=== PATIENT | female | born 1975 | race Caucasian/White ===

== ENCOUNTER 2017-07-12 17:17 | Emergency (ER) | payer OTHER ==
[~2017-07-12] VITALS: Ht 162.6 cm; Wt 50.0 kg
[~2017-07-12 17:17] MED LIST: CYMB30CA PO; LABE100 PO; LORA-475 PO; PROT40TA PO
[2017-07-12 17:22] VITALS: BP 128/82; PULSE 82; RESP 14; TEMP 98.8; O2SAT 97
[2017-07-12] MEDS ORDERED: CODEINE (17:41)
[2017-07-12] MEDS ORDERED: LORA1TAB12 PO (17:41)
[2017-07-12] MEDS ORDERED: TRAM50TA PO (17:41)
[2017-07-12] MEDS ORDERED: ZOLP10TA3 PO (17:41)
[2017-07-12] MEDS ORDERED: BUTA1CAP PO (17:41)
[2017-07-12] MEDS ORDERED: LABE100T2 PO (17:41)
[2017-07-12] MEDS ORDERED: DICL1CAP3 PO (17:41)
[2017-07-12] MEDS ORDERED: ACETAMINOPHEN (17:41)
[2017-07-12] MEDS ORDERED: DULO1CAP2 PO (17:41)
[2017-07-12] MEDS ORDERED: SODIUM CHLOR 0.9% 1000 ML INJ 1,000 ML IV SCH (18:12)
[2017-07-12] MEDS ORDERED: SODIUM CHLORIDE 0.9% FLUSH 10 ML FLUSH IV FLUSH PRN (18:15)
[2017-07-12] MEDS ORDERED: ONDANSETRON HCL 4 MG/2 ML VIAL IV PUSH ONE (18:15)
[2017-07-12 18:35] LABS: AUTOMATED NEUTROPHIL # 2.8 TH/MM3 (1.8-7.7); BASOPHIL % 0.5 % (0.0-2.0); EOSINOPHIL # 0.1 TH/MM3 (0-0.4); EOSINOPHIL % 1.1 % (0.0-4.0); HEMATOCRIT 34.9 % (35.0-46.0); HEMOGLOBIN 11.7 GM/DL (11.6-15.3); LYMPH % 34.7 % (9.0-44.0); LYMPHOCYTE # 1.7 TH/MM3 (1.0-4.8); MEAN CELL VOLUME 88.3 FL (80.0-100.0); MEAN CORPUSCULAR HEMOGLOBIN 29.5 PG (27.0-34.0); MEAN CORPUSCULAR HGB CONC 33.4 % (32.0-36.0); MEAN PLATELET VOLUME 8.5 FL (7.0-11.0); MONO % 6.1 % (0.0-8.0); MONOCYTE # 0.3 TH/MM3 (0-0.9); NEUT % 57.6 % (16.0-70.0); PLATELET COUNT 285 TH/MM3 (150-450); RED BLOOD COUNT 3.95 MIL/MM3 (4.00-5.30); RED CELL DISTRIBUTION WIDTH 13.4 % (11.6-17.2); WHITE BLOOD COUNT 4.9 TH/MM3 (4.0-11.0)
[2017-07-12 18:43] LABS: INTERNATIONAL NORMALIZED RATIO 1.1 RATIO; PROTHROMBIN TIME - PATIENT 10.7 SEC (9.8-11.6)
[2017-07-12 18:53] LABS: ALBUMIN 4.1 GM/DL (3.4-5.0); ALT (GPT) 15 U/L (10-53); AST (GOT) 18 U/L (15-37); BICARBONATE 28.5 MEQ/L (21.0-32.0); BLOOD UREA NITROGEN 6 MG/DL (7-18); CALCIUM 8.7 MG/DL (8.5-10.1); CREATININE 0.81 MG/DL (0.50-1.00); GLOMERULAR FILTRATION RATE 77 ML/MIN (>89); GLUCOSE,RANDOM 91 MG/DL (74-106)
--- NOTE | 2017-07-12 18:54 | RADRPT ---
EXAM DATE/TIME: 07/12/2017 18:27 [facility] COMPARISON: CT BRAIN W/O CONTRAST, April 26, 2015, 0:30. INDICATIONS : Altered mental status. RADIATION DOSE: 56.35 CTDIvol (mGy) MEDICAL HISTORY : Hypertension. SURGICAL HISTORY : Hysterectomy. ENCOUNTER: Initial ACUITY: 1 day PAIN SCALE: 5/10 LOCATION: cranial TECHNIQUE: Multiple contiguous axial images were obtained of the head. Using automated exposure control and adj ustment of the mA and/or kV according to patient size, radiation dose was kept as low as reasonably a chievable to obtain optimal diagnostic quality images. DICOM format image data is available electro nically for review and comparison. FINDINGS: CEREBRUM: The ventricles are normal for age. No evidence of midline shift, mass lesion, hemorrhage or acute in farction. No extra-axial fluid collections are seen. POSTERIOR FOSSA: The cerebellum and brainstem are intact. The 4th ventricle is midline. The cerebellopontine angle i s unremarkable. EXTRACRANIAL: The visualized portion of the orbits is intact. SKULL: The calvaria is intact. No evidence of skull fracture. CONCLUSION: Negative noncontrast head CT. Ruben Allan MD on July 12, 2017 at 18:52 Board Certified Radiologist. This report was verified electronically.
[2017-07-12 18:55] LABS: ALKALINE PHOSPHATASE 76 U/L (45-117); TOTAL BILIRUBIN ADULT 0.7 MG/DL (0.2-1.0); TOTAL PROTEIN 7.1 GM/DL (6.4-8.2)
--- NOTE | 2017-07-12 19:15 | RADRPT ---
EXAM DATE/TIME: 07/12/2017 18:50 [facility] COMPARISON: No previous studies available for comparison. INDICATIONS : Short of breath and chest pain. MEDICAL HISTORY : Hypertension. Gastroesophageal reflux disease. SURGICAL HISTORY : Hysterectomy. ENCOUNTER: Initial ACUITY: 1 day PAIN SCORE: 2/10 LOCATION: Bilateral chest FINDINGS: A single view of the chest demonstrates the lungs to be symmetrically aerated without evidence of mas s, infiltrate or effusion. The cardiomediastinal contours are unremarkable. Osseous structures are intact. CONCLUSION: No evidence of acute cardiopulmonary disease. Ruben Allan MD on July 12, 2017 at 19:13 Board Certified Radiologist. This report was verified electronically.
[2017-07-12 19:28] LABS: CHLORIDE 106 MEQ/L (98-107); SODIUM (NA) 141 MEQ/L (136-145)
[2017-07-12 19:44] LABS: ACETAMINOPHEN LESS THAN 2.0 MCG/ML (10.0-30.0)
--- NOTE | 2017-07-12 19:49 | PD ---
HPI Chief Complaint: Altered Mental Status Time Seen by Provider: 17:29 Travel History International Travel<30 days: No Contact w/Intl Traveler<30days: No Traveled to known affect area: No History of Present Illness HPI Patient is a 41-year-old female brought in by EMS due to altered mental status. Patient does not remember what happened this afternoon, she is is complaining of a left-sided headache. Per daughter, patient was speaking to her when she suddenly started shaking and became unresponsive. She has been confused then. She has never had a seizure before. She takes Ativan as well as Ambien and has several empty bottles with her. Patient is still confused on interview. PFSH Past Medical History Hx Anticoagulant Therapy: No Anxiety: Yes (PANIC DISORDER) Depression: Yes Cardiovascular Problems: Yes (HTN) High Cholesterol: No Chemotherapy: No Congestive Heart Failure: No Cerebrovascular Accident: No Diabetes: No Diminished Hearing: No Gastrointestinal Disorders: Yes GERD: Yes Genitourinary: Yes Headaches: Yes Hypertension: Yes Implanted Vascular Access Dvce: Yes Kidney Stones: Yes Musculoskeletal: No Neurologic: Yes Psychiatric: Yes Respiratory: No Immunizations Current: Yes Migraines: Yes Tetanus Vaccination: < 5 Years Influenza Vaccination: No ?: Not : 5 Para: 5 Past Surgical History Body Medical Devices: RIGHT LEG AND ANKLE PLATE AND SCREWS Section: Yes (X2) Gynecologic Surgery: Yes (HYSTERECTOMY, 2 C-SECTIONS) Hysterectomy: Yes Oral Surgery: Yes (REPAIR OF NASAL FRACTURE) Tonsillectomy: Yes Other Surgery: Yes (BREAST AUGMENTATION) Social History Alcohol Use: Yes (OCCASIONALLY) Tobacco Use: No Substance Use: No Allergies-Medications (Allergen,Severity, Reaction): Coded Allergies: butorphanol (Unverified Allergy, Severe, SOB, 07/12/17) sumatriptan (Unverified Allergy, Severe, SOB, 07/12/17) nalbuphine (Unverified Allergy, Unknown, 07/12/17) Uncoded Allergies: MAXALT (Allergy, Severe, SOB, 03/27/14) Reported Meds & Prescriptions Reported Meds & Active Scripts Active Reported Labetalol (Labetalol HCl) 100 Mg Tab 100 Mg PO BID Zorvolex (Diclofenac) 18 Mg Cap 18 Mg PO TID Duloxetine DR (Duloxetine HCl) 30 Mg Capdr 30 Mg PO DAILY Tramadol (Tramadol HCl) 50 Mg Tab 50 Mg PO Q4H PRN Lorazepam 1 Mg Tab 1 Mg PO DAILY PRN Zolpidem (Zolpidem Tartrate) 10 Mg Tab 10 Mg PO HS PRN Fioricet (Ozmsrgzcnk-Liuuytnuyapit-Jzbeyfxf) 50-300-40 Mg Cap 1 Cap PO Q4H PRN [Acet Codeine #4] Review of Systems ROS Limitations: Clinical Condition, Altered Mental Status General / Constitutional: No: Fever, Chills HENT: Positive: Headaches Cardiovascular: No: Chest Pain or Discomfort Respiratory: No: Shortness of Breath Gastrointestinal: Positive: Nausea Physical Exam Narrative GENERAL: Awake and alert, confused. SKIN: Focused skin assessment warm/dry. No wounds or signs of infection. HEAD: Atraumatic. Normocephalic. EYES: Pupils equal and round and reactive. No scleral icterus. Extraocular movements intact. ENT: Mucous membranes pink and moist. NECK: Trachea midline. No JVD. CARDIOVASCULAR: Regular rate and rhythm. No murmur appreciated. RESPIRATORY: No accessory muscle use. Clear to auscultation. Breath sounds equal bilaterally. GASTROINTESTINAL: Abdomen soft, non-tender, nondistended. MUSCULOSKELETAL: No obvious deformities. No clubbing. No cyanosis. No edema. NEUROLOGICAL: Awake and alert. No obvious cranial nerve deficits. Motor grossly within normal limits. Normal speech. PSYCHIATRIC: Appropriate mood and affect; insight and judgment normal. Data Data Last Documented VS Vital Signs Date Time Temp Pulse Resp B/P (MAP) Pulse Ox O2 Delivery O2 Flow Rate FiO2 07/12/17 17:22 98.8 82 14 128/82 (97) 97 Orders Orders Ammonia (07/12/17 18:12) Complete Blood Count With Diff (07/12/17 18:12) Comprehensive Metabolic Panel (07/12/17 18:12) Prothrombin Time / Inr (Pt) (07/12/17 18:12) Act Partial Throm Time (Ptt) (07/12/17 18:12) Urinalysis - C+S If Indicated (07/12/17 18:12) Chest, Single Ap (07/12/17 18:12) Ct Brain W/O Iv Contrast(Rout) (07/12/17 18:12) Blood Glucose (07/12/17 18:12) Ecg Monitoring (07/12/17 18:12) Iv Access Insert/Monitor (07/12/17 18:12) Oximetry (07/12/17 18:12) Sodium Chloride 0.9% Flush (Ns Flush) (07/12/17 18:15) Sodium Chlor 0.9% 1000 Ml Inj (Ns 1000 M (07/12/17 18:12) Drug Screen, Random Urine (07/12/17 18:12) Alcohol (Ethanol) (07/12/17 18:12) Tylenol (Acetaminophen) (07/12/17 18:12) Salicylates (Aspirin) (07/12/17 18:12) Ondansetron Inj (Zofran Inj) (07/12/17 18:15) Labs Laboratory Tests Test 07/12/17 18:20 White Blood Count 4.9 TH/MM3 Red Blood Count 3.95 MIL/MM3 Hemoglobin 11.7 GM/DL Hematocrit 34.9 % Mean Corpuscular Volume 88.3 FL Mean Corpuscular Hemoglobin 29.5 PG Mean Corpuscular Hemoglobin Concent 33.4 % Red Cell Distribution Width 13.4 % Platelet Count 285 TH/MM3 Mean Platelet Volume 8.5 FL Neutrophils (%) (Auto) 57.6 % Lymphocytes (%) (Auto) 34.7 % Monocytes (%) (Auto) 6.1 % Eosinophils (%) (Auto) 1.1 % Basophils (%) (Auto) 0.5 % Neutrophils # (Auto) 2.8 TH/MM3 Lymphocytes # (Auto) 1.7 TH/MM3 Monocytes # (Auto) 0.3 TH/MM3 Eosinophils # (Auto) 0.1 TH/MM3 Basophils # (Auto) 0.0 TH/MM3 CBC Comment DIFF FINAL Differential Comment Prothrombin Time 10.7 SEC Prothromb Time International Ratio 1.1 RATIO Activated Partial Thromboplast Time 24.3 SEC Blood Urea Nitrogen 6 MG/DL Creatinine 0.81 MG/DL Random Glucose 91 MG/DL Total Protein 7.1 GM/DL Albumin 4.1 GM/DL Calcium Level 8.7 MG/DL Alkaline Phosphatase 76 U/L Aspartate Amino Transf (AST/SGOT) 18 U/L Alanine Aminotransferase (ALT/SGPT) 15 U/L Total Bilirubin 0.7 MG/DL Sodium Level 141 MEQ/L Potassium Level 3.7 MEQ/L Chloride Level 106 MEQ/L Carbon Dioxide Level 28.5 MEQ/L Anion Gap 7 MEQ/L Estimat Glomerular Filtration Rate 77 ML/MIN Ammonia 23 MCMOL/L Salicylates Level LESS THAN 1.7 MG/DL Acetaminophen Level LESS THAN 2.0 MCG/ML Ethyl Alcohol Level LESS THAN 3 MG/DL MDM Medical Decision Making Medical Screen Exam Complete: Yes Emergency Medical Condition: Yes Medical Record Reviewed: Yes Differential Diagnosis Benzo withdrawal versus new onset seizure versus intoxication versus migraine Narrative Course Patient is a 41-year-old female who comes in due to altered mental status. Currently she is still confused, but she is awake and alert. IV established, labs sent. Labs show no acute abnormalities. CT head performed shows no acute abnormalities. Patient signed out to Dr. Royal to follow-up testing and disposition the patient. Last [address] 07/12/171811 Signed Impressions: Service Date/Time: Wednesday, July 12, 2017 18:27 - CONCLUSION: Negative noncontrast head CT. Ruben Allan MD Chest X-Ray 07/12/171811 Signed Impressions: Service Date/Time: Wednesday, July 12, 2017 18:50 - CONCLUSION: No evidence of acute cardiopulmonary disease. [facility]en Allan [facility] CountyKarlene MD Jul 12, 2017 19:49
[2017-07-12 19:55] VITALS: BP 135/93; PULSE 81; RESP 19; O2SAT 95
[2017-07-12] MEDS ORDERED: diphenhydrAMINE HCL 50 MG/ML VIAL IV PUSH ONE (20:15)
[2017-07-12] MEDS ORDERED: LORazepam 2 MG/ML VIAL IV PUSH ONE (20:15)
[2017-07-12] MEDS ORDERED: METOCLOPRAMIDE INJ 10 MG in SODIUM CHLORIDE 0.9% INJ 50 ML IV ONE (20:15)
[2017-07-12] MEDS ORDERED: KETOROLAC TROMETHAMINE 30 MG/ML (IVP) VIAL IV PUSH ONE (20:15)
[2017-07-12] MEDS ORDERED: AMBI10TA PO (21:44)
--- NOTE | 2017-07-12 21:45 | PD ---
Physical Exam Date Seen by Provider: Jul 12, 2017 Time Seen by Provider: 19:30 Narrative Patient's labs have returned normal sodium was normal at [facility] is normal CAT scan chest x-ray all normal no signs of infection patient is observed in the ER she is normalizing her mentation. She complains of a headache she is given Toradol Reglan and Benadryl and Ativan IV. Discharged with follow-up with her outpatient doctor prescription for 10 mg pills of Ambien given total of 10 pills Data Data Last Documented VS Vital Signs Date Time Temp Pulse Resp B/P (MAP) Pulse Ox O2 Delivery O2 Flow Rate FiO2 07/12/17 19:56 81 99 Room Air 07/12/17 19:55 19 135/93 (107) 07/12/17 17:22 98.8 Orders Orders Ammonia (07/12/17 18:12) Complete Blood Count With Diff (07/12/17 18:12) Comprehensive Metabolic Panel (07/12/17 18:12) Prothrombin Time / Inr (Pt) (07/12/17 18:12) Act Partial Throm Time (Ptt) (07/12/17 18:12) Urinalysis - C+S If Indicated (07/12/17 18:12) Chest, Single Ap (07/12/17 18:12) Ct Brain W/O Iv Contrast(Rout) (07/12/17 18:12) Blood Glucose (07/12/17 18:12) Ecg Monitoring (07/12/17 18:12) Iv Access Insert/Monitor (07/12/17 18:12) Oximetry (07/12/17 18:12) Sodium Chloride 0.9% Flush (Ns Flush) (07/12/17 18:15) Sodium Chlor 0.9% 1000 Ml Inj (Ns 1000 M (07/12/17 18:12) Drug Screen, Random Urine (07/12/17 18:12) Alcohol (Ethanol) (07/12/17 18:12) Tylenol (Acetaminophen) (07/12/17 18:12) Salicylates (Aspirin) (07/12/17 18:12) Ondansetron Inj (Zofran Inj) (07/12/17 18:15) Ketorolac Inj (Toradol Inj) (07/12/17 20:15) Diphenhydramine Inj (Benadryl Inj) (07/12/17 20:15) Metoclopramide Inj (Reglan Inj) (07/12/17 20:15) Lorazepam Inj (Ativan Inj) (07/12/17 20:15) Ed Discharge Order (07/12/17 21:39) Labs Laboratory Tests Test 07/12/17 18:20 White Blood Count 4.9 TH/MM3 Red Blood Count 3.95 MIL/MM3 Hemoglobin 11.7 GM/DL Hematocrit 34.9 % Mean Corpuscular Volume 88.3 FL Mean Corpuscular Hemoglobin 29.5 PG Mean Corpuscular Hemoglobin Concent 33.4 % Red Cell Distribution Width 13.4 % Platelet Count 285 TH/MM3 Mean Platelet Volume 8.5 FL Neutrophils (%) (Auto) 57.6 % Lymphocytes (%) (Auto) 34.7 % Monocytes (%) (Auto) 6.1 % Eosinophils (%) (Auto) 1.1 % Basophils (%) (Auto) 0.5 % Neutrophils # (Auto) 2.8 TH/MM3 Lymphocytes # (Auto) 1.7 TH/MM3 Monocytes # (Auto) 0.3 TH/MM3 Eosinophils # (Auto) 0.1 TH/MM3 Basophils # (Auto) 0.0 TH/MM3 CBC Comment DIFF FINAL Differential Comment Prothrombin Time 10.7 SEC Prothromb Time International Ratio 1.1 RATIO Activated Partial Thromboplast Time 24.3 SEC Blood Urea Nitrogen 6 MG/DL Creatinine 0.81 MG/DL Random Glucose 91 MG/DL Total Protein 7.1 GM/DL Albumin 4.1 GM/DL Calcium Level 8.7 MG/DL Alkaline Phosphatase 76 U/L Aspartate Amino Transf (AST/SGOT) 18 U/L Alanine Aminotransferase (ALT/SGPT) 15 U/L Total Bilirubin 0.7 MG/DL Sodium Level 141 MEQ/L Potassium Level 3.7 MEQ/L Chloride Level 106 MEQ/L Carbon Dioxide Level 28.5 MEQ/L Anion Gap 7 MEQ/L Estimat Glomerular Filtration Rate 77 ML/MIN Ammonia 23 MCMOL/L Salicylates Level LESS THAN 1.7 MG/DL Acetaminophen Level LESS THAN 2.0 MCG/ML Ethyl Alcohol Level LESS THAN 3 MG/DL MDM Supervised Visit with VANESA: No Narrative Course Patient's mentation has improved is bedside he feels she is returned to her baseline she is discharged to follow-up as an outpatient Dr Davalos PCP was bedside agrees with follow up as outpt and agrees with ambien 10 mg PO to temporize until seen outpt Diagnosis Primary Impression: 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
--- NOTE | 2017-07-12 23:22 | HHI.PR ---
Subjective Remarks Patient is a 41-year-old female brought in by EMS due to altered mental status. Patient does not remember what happened this afternoon, she is is complaining of a left-sided headache. Per daughter, patient was speaking to her when she suddenly started shaking and became unresponsive. She has been confused then. She has never had a seizure before. She takes Ativan as well as Ambien and has several empty bottles with her. Patient ran out of ambien about 3 days ago as she had migraine and doubled the medication and then ran out and symptoms developed today. On my evaluation alert oriented with resolution of symptoms did receive treatment for migraine and ativan IV . Work up in er negative CT head and lab work . Objective Vitals GENERAL: SKIN: Warm and dry. HEAD: Atraumatic. Normocephalic. EYES: Pupils equal and round. No scleral icterus. No injection or drainage. ENT: No nasal bleeding or discharge. Mucous membranes pink and moist. NECK: Trachea midline. No JVD. CARDIOVASCULAR: Regular rate and rhythm. RESPIRATORY: No accessory muscle use. Clear to auscultation. Breath sounds equal bilaterally. GASTROINTESTINAL: Abdomen soft, non-tender, nondistended. Hepatic and splenic margins not palpable. MUSCULOSKELETAL: Extremities without clubbing, cyanosis, or edema. No obvious deformities. NEUROLOGICAL: Awake and alert. No obvious cranial nerve deficits. Motor grossly within normal limits. Five out of 5 muscle strength in the arms and legs. Normal speech. PSYCHIATRIC: Appropriate mood and affect; insight and judgment normal. Vital Signs Date Time Temp Pulse Resp B/P (MAP) Pulse Ox O2 Delivery O2 Flow Rate FiO2 07/12/17 22:11 07/12/17 19:56 81 99 Room Air 07/12/17 19:55 81 19 135/93 (107) 95 Room Air 07/12/17 17:22 98.8 82 14 128/82 (97) 97 07/12/17 07/12/17 07/13/17 15:00 23:00 07:00 Intake Total 1000 ml Balance 1000 ml Intake IV Total 1000 ml Result Diagram: 07/12/17181907/12/17 182 Imaging Last [address] 07/12/171811 Signed Impressions: Service Date/Time: Wednesday, July 12, 2017 18:27 - CONCLUSION: Negative noncontrast head CT. Ruben Allan MD Chest X-Ray 07/12/17 1812 Signed Impressions: Service Date/Time: Wednesday, July 12, 2017 18:50 - CONCLUSION: No evidence of acute cardiopulmonary disease. Ruben Allan MD A/P Problem List: (1) Altered mental status ICD Codes: R41.82 - Altered mental status, unspecified Status: Acute Plan: resolved to baseline probably related to being off ambien for 3 days restart ,as out patient will arrange neurology follow up and EEG Assessment and Plan as above Discharge Planning discharge home Andrey Clark MD Jul 12, 2017 23:22
[2017-07-15] MEDS ORDERED: TYLETAB36 PO (10:54)
== END 2017-07-12 22:12 | disposition home or self-care (01) ==
LOC: NEPC 17:17
DX: G40.89 Other seizures (principal); F13.239 Sedative, hypnotic or anxiolytic dependence with withdrawal, unspecified; F32.9 Major depressive disorder, single episode, unspecified; I10 Essential (primary) hypertension; Z88.8 Allergy status to other drugs, medicaments and biological substances
CPT/HCPCS: 70450; 71045; 80053; 80307; 82140; 85025; 85610; 85730; 96361; 96374; 96375; 99285; J1200; J1885; J2060; J2405; J2765; J7030